=== PATIENT | male | born 1965 | race Hispanic/Latino ===

== ENCOUNTER 2023-02-25 19:21 | Emergency (ER) | payer BC, SELFPAY ==
[2023-02-25 19:37] LABS: #Eosinphils 0.1 thou/uL (0.0-0.7); #Monocytes 0.5 thou/uL (0.11-0.59); #Neutrophils 2.9 thou/uL (1.40-6.50); %Basophils 0.9 % (0.0-1.0); %Eosinophils 2.2 % (0.0-10.0); %Lymphocytes 22.6 % (21.0-51.0); %Neutrophils 64.1 % (42.0-75.0); Hemoglobin 13.9 g/dL (14.0-18.0); Mean Corpuscular HGB CONC 33.5 g/dL (32.0-36.0); Mean Corpuscular Hemoglobin 32.3 pg (27.0-31.0); Mean Corpuscular Volume 96.3 fl (78.0-98.0); Platelet Count 132 10x3/uL (130-400); RBC Distribution Width 12.3 % (11.5-14.5); Red Blood Cell (RBC) Count 4.31 mill/uL (4.70-6.10); White Blood Cell (WBC) Count 4.5 10x3/uL (4.8-10.8)
[2023-02-25] MEDS ORDERED: Proparacaine 0.5% Opth 15 ML BOT ONE (19:46)
[2023-02-25] MEDS ORDERED: Fluorescein Opthalmic Strip ONE (19:46)
[2023-02-25 19:58] LABS: ALT (SGPT) 23 U/L (8-55); AST (SGOT) 23 U/L (5-34); Albumin 4.4 g/dL (3.5-5.0); Alkaline Phosphatase 101 U/L (40-110); Anion Gap 13 mmol/L (10-20); BUN (Urea Nitrogen) 22 mg/dL (8.4-25.7); Bilirubin, Total 0.5 mg/dL (0.2-1.2); Calc. Creatinine Clearance 0 mL/min (70-130); Calcium 9.4 mg/dL (7.8-10.44); Carbon Dioxide 25 mmol/L (22-29); Chloride 104 mmol/L (98-107); Estimated GFR 82; Globulin 3.4 g/dL (2.4-3.5); Glucose 94 mg/dL (70-105); Potassium 4.1 mmol/L (3.5-5.1); Protein, Total 7.8 g/dL (6.0-8.3); Sodium 138 mmol/L (136-145)
[2023-02-25 20:02] LABS: INR-International Normal Ratio 0.9; PTT 25.7 sec (22.9-36.1); Prothrombin Time 12.7 sec (12.0-14.7)
== END 2023-02-25 21:37 | disposition home or self-care (01) ==
LOC: ERS 19:21
DX: G51.0 Bell's palsy (principal); D72.819 Decreased white blood cell count, unspecified
CPT/HCPCS: 36416; 70450; 80053; 84484; 85025; 85610; 85730; 94760

== ENCOUNTER 2023-12-03 16:44 | Emergency (ER) | payer SELFPAY, OTHER ==
[2023-12-03] MEDS ORDERED: Ketorolac Tromethamine 30 MG (1 mL) VIAL ONE (17:56)
[2023-12-03] MEDS ORDERED: Cyclobenzaprine 10 MG TAB ONE (17:57)
== END 2023-12-03 18:48 | disposition home or self-care (01) ==
LOC: ERS 16:44
DX: S39.012A Strain of muscle, fascia and tendon of lower back, initial encounter (principal); S46.911A Strain of unspecified muscle, fascia and tendon at shoulder and upper arm level, right arm, initial encounter; Z75.8 Other problems related to medical facilities and other health care; W01.0XXA Fall on same level from slipping, tripping and stumbling without subsequent striking against object, initial encounter
CPT/HCPCS: 72100; 96372; J1885

== ENCOUNTER 2024-04-25 15:28 | Emergency (ER) | payer SELFPAY, OTHER ==
[2024-04-25] MEDS ORDERED: Ondansetron PF 4 MG/2 ML Vial ONE (16:28)
[2024-04-25 16:53] LABS: Hematocrit 43.2 % (42.0-52.0); Hemoglobin 15.1 g/dL (14.0-18.0); Mean Corpuscular Hemoglobin 33.5 pg (27.0-31.0); Mean Corpuscular Volume 95.8 fL (78.0-98.0); Mean Platelet Volume 12.1 fL (7.4-10.4); Platelet Count 120 10x3/uL (130-400); RBC Distribution Width 12.7 % (11.5-14.5); Red Blood Cell (RBC) Count 4.51 mill/uL (4.70-6.10)
[2024-04-25] MEDS ORDERED: diphenhydrAMINE 50 MG/ML VIAL ONE (16:53)
[2024-04-25] MEDS ORDERED: Metoclopramide HCl 10 MG (2 mL) VIAL ONE (16:54)
[2024-04-25 16:59] LABS: #Basophils 0.03 10x3/uL (0.0-0.2); %Basophils 0.4 % (0.0-1.0); %Eosinophils 0.4 % (0.0-10.0); %Monocytes 4.2 % (0.0-10.0); %Neutrophils 85.6 % (42.0-75.0)
[2024-04-25 17:00] LABS: ALT (SGPT) 29 U/L (8-55); AST (SGOT) 28 U/L (5-34); Albumin 4.4 g/dL (3.5-5.0); Alkaline Phosphatase 103 U/L (40-110); Anion Gap 17 mmol/L (10-20); BUN (Urea Nitrogen) 17 mg/dL (8.4-25.7); Bilirubin, Total 0.7 mg/dL (0.2-1.2); CK (CPK) 113 U/L (30-200); Calc. Creatinine Clearance 0 mL/min (70-130); Calcium 9.7 mg/dL (7.8-10.44); Carbon Dioxide 22 mmol/L (22-29); Chloride 106 mmol/L (98-107); Estimated GFR 101; Globulin 3.6 g/dL (2.4-3.5); Glucose 130 mg/dL (70-105); Sodium 141 mmol/L (136-145)
== END 2024-04-25 18:00 | disposition home or self-care (01) ==
LOC: ERS 15:28
DX: T67.5XXA Heat exhaustion, unspecified, initial encounter (principal); E86.0 Dehydration; R11.2 Nausea with vomiting, unspecified; X32.XXXA Exposure to sunlight, initial encounter; Y93.89 Activity, other specified; Y92.89 Other specified places as the place of occurrence of the external cause
CPT/HCPCS: 36415; 80053; 82550; 83605; 85025; J1200; J2405; J2765